=== PATIENT | male | born 1990 | race Caucasian/White ===

== ENCOUNTER 2021-12-06 15:52 | Emergency (ER) | payer MEDICAID ==
[~2021-12-06] VITALS: Ht 170.2 cm; Wt 73.0 kg
--- NOTE | 2021-12-06 16:17 | NUR ---
[id number] FOR POS ETOH INTOXICATION. PATIENT FOUND IN SLEEPING IN A BUS WITH ALCOHOL BOTTLE IN HIS HAND. ADMITED DRINKING ALCOHOL. THE PATIENT IS RESPONSIVE TO VERBAL STIMULI BY OPENING EYES. NOTED TO BE VERY DROWSY. IN ROOM AIR. RESPIRATION REGULAR AND UNLABORED. ATTACHED TO THE MONITOR. WILL CONTINUE TO MONITOR THE PATIENT.
[2021-12-06] MEDS ORDERED: IV NS 0.9% 1,000 ML BAG IV ONE (16:30)
[2021-12-06 16:35] LABS: BASOPHILS % (AUTO) 0.5 % (0.0-2.0); EOSINOPHILS % (AUTO) 1.2 % (0.0-6.0); HEMATOCRIT 37 % (39-51); HEMOGLOBIN 12.3 g/dL (13.5-17.5); LYMPHOCYTES # (AUTO) 1.2 K/uL (0.8-4.8); LYMPHOCYTES % (AUTO) 18.2 % (20.0-44.0); MEAN CORPUSCULAR HGB CONC 34 g/dl (31.0-36.0); MEAN CORPUSCULAR VOLUME 90 fL (80-96); MONOCYTES # (AUTO) 0.8 K/uL (0.1-1.30); MONOCYTES % (AUTO) 12.7 % (2.0-12.0); NEUTROPHILS # (AUTO) 4.4 K/uL (1.8-8.9); NEUTROPHILS % (AUTO) 67.4 % (43.0-81.0); PLATELET COUNT (AUTO) 303 K/uL (150-450); RED BLOOD CELL COUNT(AUTO) 4.06 MIL/uL (4.5-6.0); WHITE BLOOD COUNT (AUTO) 6.5 K/uL (4.3-11.0)
--- NOTE | 2021-12-06 16:52 | NUR ---
ADDENDUM: Intravenous End Time Documentation: Normal saline 1 liter (IV-WO) : start time:1652 pm ; end time:1752 pm : IV site:LAC PIV # 18 Port # 1
[2021-12-06] MEDS ORDERED: LORAZEPAM INJ 2 MG/ML VIAL IV ONE (17:00)
[2021-12-06 17:01] LABS: ALBUMIN 3.4 g/dL (3.4-5.0); BILIRUBIN,DIRECT 0.1 mg/dL (0.0-0.2); BILIRUBIN,TOTAL 0.2 mg/dL (0.2-1.0); CALCIUM, SERUM 8.7 mg/dL (8.5-10.1); CREATININE 0.8 mg/dL (0.6-1.3); POTASSIUM 2.9 mmol/L (3.5-5.1); TOTAL PROTEIN, SERUM 7.1 g/dL (6.4-8.2)
[2021-12-06] MEDS ORDERED: LORAZEPAM INJ 2 MG/ML VIAL ONE (17:05)
--- NOTE | 2021-12-06 17:35 | NUR ---
patient transported to CT
[2021-12-06] MEDS: POTASSIUM CL. PREMIX PERIPHER. 50 ML IV SCH ×2 (18:00→21:34)
[2021-12-06] MEDS ORDERED: POTASSIUM CL. PREMIX PERIPHER. 100 ML ONE (18:54)
--- NOTE | 2021-12-06 20:42 | NUR ---
URINE COLLECTED AND SENT TO LAB
--- NOTE | 2021-12-06 22:18 | NUR ---
PT ambulatory with a steady gait, Nyla [employer] aware
[2021-12-06] MEDS ORDERED: CEPH500T PO (22:23)
[2021-12-06] MEDS ORDERED: IBUP-1955 PO (22:23)
[2021-12-06 22:41] LABS: BILIRUBIN,URINE NEGATIVE (NEGATIVE); COLOR,URINE YELLOW (YELLOW); LEUKOCYTE ESTERASE ,URINE NEGATIVE (NEGATIVE); NITRITE, URINE NEGATIVE (NEGATIVE); PROTEIN,URINE NEGATIVE (NEGATIVE); UGLUCOSE NEGATIVE (NEGATIVE); UROBILINOGEN,URINE 0.2 EU/dL (0.2)
--- NOTE | 2021-12-06 23:00 | NUR ---
IV removed. Catheter intact and site benign. Pressure and 4x4 applied to site. No bleeding noted.
--- NOTE | 2021-12-06 23:03 | NUR ---
Patient discharged to home in stable condition. Written and verbal after care instructions given. Patient verbalizes understanding of instruction. PT ambulatory with a steady gait IV removed. Catheter intact and site benign. Pressure and 4x4 applied to site. No bleeding noted.
[2021-12-06 23:33] VITALS: BP 120/61
[2021-12-07 07:09] LABS: BACTERIA,URINE None seen /HPF (None Seen); RBC,URINE NONE SEEN /HPF (0-2); WBC,URINE NONE SEEN /HPF (0-3)
[2021-12-07 07:10] LABS: SQUAMOUS EPITHELIAL CELL,UR Few /HPF (None Seen)
== END 2021-12-06 23:00 | disposition home or self-care (01) ==
LOC: EDBD 16:00 → ER 16:00
DX: S02.2XXA Fracture of nasal bones, initial encounter for closed fracture (principal); F10.129 Alcohol abuse with intoxication, unspecified; E87.6 Hypokalemia; Z79.899 Other long term (current) drug therapy; X58.XXXA Exposure to other specified factors, initial encounter; Y93.89 Activity, other specified; Y92.89 Other specified places as the place of occurrence of the external cause; Y99.8 Other external cause status; Y90.8 Blood alcohol level of 240 mg/100 ml or more
CPT/HCPCS: 36415; 70450; 70486; 71045; 80048; 80076; 80143; 80307; 80320; 81001; 83735; 85025; 85730; 93005; 96361; 96365; 96375; 99285; J2060; J3480; J7030; G0480